=== PATIENT | female | born 1955 | race Caucasian/White ===

== ENCOUNTER 2018-07-03 07:06 | Inpatient (IN) | payer OTHER ==
[2018-07-03 07:56] LABS: Basophils % (A) 0 %; Eosinophils # (A) 0.3 k/uL (0-0.7); Eosinophils % (A) 5 %; HCT 41.3 % (34.0-46.0); HGB 13.7 gm/dL (11.4-16.0); Lymphocytes # (A) 2.5 k/uL (1.0-4.8); Lymphocytes % (A) 40 %; MCH 31.1 pg (25.0-35.0); MCHC 33.2 g/dL (31.0-37.0); MCV 93.5 fL (80.0-100.0); Mean Platelet Volume 7.2; Monocytes # (A) 0.4 k/uL (0-1.0); Monocytes % (A) 6 %; Neutrophils % (A) 47 %; Platelet Count 241 k/uL (150-450); RBC 4.42 m/uL (3.80-5.40); RDW 13.7 % (11.5-15.5); WBC 6.3 k/uL (3.8-10.6)
[2018-07-03 08:07] LABS: ALT 18 U/L (9-52); AST 17 U/L (14-36); Albumin 3.7 g/dL (3.5-5.0); Alkaline Phosphatase 47 U/L (38-126); Anion Gap 6 mmol/L; Blood Urea Nitrogen 16 mg/dL (7-17); Calcium 9.3 mg/dL (8.4-10.2); Carbon Dioxide 26 mmol/L (22-30); Chloride 108 mmol/L (98-107); Glucose 94 mg/dL (74-99); Potassium 4.1 mmol/L (3.5-5.1); Sodium 140 mmol/L (137-145); Total Bilirubin 0.7 mg/dL (0.2-1.3); Total Protein 6.3 g/dL (6.3-8.2)
[2018-07-03 08:08] LABS: Partial Thromboplastin Time 23.2 sec (22.0-30.0); Prothrombin Time 9.5 sec (9.0-12.0)
--- NOTE | 2018-07-03 08:08 | CT ---
EXAMINATION TYPE: CT brain wo con for TPA DATE OF EXAM: 07/03/2018 COMPARISON: None HISTORY: Pt presenting w/ neurological deficits. CT DLP: 1532.8 mGycm Automated exposure control for dose reduction was used. Helical imaging through the brain. FINDINGS: Deep white matter shows some vague areas of low-attenuation. No hemorrhage or hydrocephalus. 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 Cerebral vascular calc ifications are present. Minimal mucosal disease present in the maxillary sinus on the left. IMPRESSION: NONSPECIFIC WHITE MATTER DEMYELINATION MAY BE DUE TO CHRONIC SMALL VESSEL ISCHEMIA. NO ACUTE ABNORMAL ITY EVIDENT. MRI MAY BE OF BENEFIT.
--- NOTE | 2018-07-03 08:09 | ED ---
General Adult HPI - General Chief complaint: Neuro Symptoms/Deficit Stated complaint: Poss stroke Time Seen by Provider: 07/03/18 07:10 Source: patient, family, RN notes reviewed Mode of arrival: wheelchair Limitations: no limitations - History of Present Illness Initial comments: This is a 63-year-old female who presents emergency Department complaining of right hand weakness at this time. 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 It was at this time that she called her son and on the phone with him she noticed any difference in her voice and she thought she was having difficulty finding words. When the son arrived he had to assist her walking and she thought her right leg at that time was weak. Currently her only complaint is right hand weakness. Patient denies any chest pain difficulty breathing shortness of breath per patient denies any recent fever chills or cough per patient denies any headache. - Related Data Allergies Allergy/AdvReac Type Severity Reaction Status Date / Time No Known Allergies Allergy Verified 07/03/18 07:20 Review of Systems ROS Statement: Those systems with pertinent positive or pertinent negative responses have been documented in the HPI. ROS Other: All systems not noted in ROS Statement are negative. Past Medical History Past Medical History: No Reported History History of Any Multi-Drug Resistant Organisms: None Reported Past Surgical History: No Surgical Hx Reported Past Psychological History: No Psychological Hx Reported Smoking Status: Never smoker Past Alcohol Use History: None Reported Past Drug Use History: None Reported General Exam - General Exam Comments Initial Comments: GENERAL: Patient is well-developed and well-nourished. Patient is nontoxic and well- hydrated and is in mild distress. ENT: Neck is soft and supple. No significant lymphadenopathy is noted. Oropharynx is clear. Moist mucous membranes. Neck has full range of motion without eliciting any pain. EYES: The sclera were anicteric and conjunctiva were pink and moist. Extraocular movements were intact and pupils were equal round and reactive to light. Eyelids were unremarkable. PULMONARY: Unlabored respirations. Good breath sounds bilaterally. No audible rales rhonchi or wheezing was noted. CARDIOVASCULAR: There is a regular rate and rhythm without any murmurs gallops or rubs. Femoral pulses are equal bilaterally ABDOMEN: Soft and nontender with normal bowel sounds. No palpable organomegaly was noted. There is no palpable pulsatile mass. SKIN: Skin is clear with no lesions or rashes and otherwise unremarkable. NEUROLOGIC: Patient is alert and oriented x3. Cranial nerves II through XII are grossly intact. Patient has virtually no revenue cycle consultant in the right hand however by the time I was done interviewing her and doing my physical exam her revenue cycle consultant had come back to probably 45. MUSCULOSKELETAL: Normal extremities with adequate strength and full range of motion. No lower extremity swelling or edema. No calf tenderness. LYMPHATICS: No significant lymphadenopathy is noted PSYCHIATRIC: Normal psychiatric evaluation. Limitations: no limitations Course Vital Signs 07/03/18 07/03/18 07/03/18 07:12 07:25 07:40 Temperature 98.2 F Pulse Rate 85 86 84 Respiratory 20 19 19 Rate Blood Pressure 147/94 145/123 146/86 O2 Sat by Pulse 97 98 99 Oximetry Medical Decision Making - Medical Decision Making I spoke with the neuro interventional list and he did not believe TPA at this time was indicated EKG shows normal sinus rhythm at 74 bpm ID interval 184 QRS 94 Q-T intervals 408 QTC is 452. Patient's EKG shows no ST segment elevation or depression. CT of the brain and CT and U of the head and neck are normal per the neuro interventional states I started the patient on Plavix aspirin and Lipitor - Lab Data Result diagrams: 07/03/18 07:25 07/03/18 07:25 Lab Results 07/03/18 07/03/18 07/03/18 Range/Units 07:25 07:25 07:25 WBC 6.3 (3.8-10.6) k/uL RBC 4.42 (3.80-5.40) m/uL Hgb 13.7 (11.4-16.0) gm/dL Hct 41.3 (34.0-46.0) % MCV 93.5 (80.0-100.0) fL MCH 31.1 (25.0-35.0) pg MCHC 33.2 (31.0-37.0) g/dL RDW 13.7 (11.5-15.5) % Plt Count 241 (150-450) k/uL Neutrophils % 47 % Lymphocytes % 40 % Monocytes % 6 % Eosinophils % 5 % Basophils % 0 % Neutrophils # 3.0 (1.3-7.7) k/uL Lymphocytes # 2.5 (1.0-4.8) k/uL Monocytes # 0.4 (0-1.0) k/uL Eosinophils # 0.3 (0-0.7) k/uL Basophils # 0.0 (0-0.2) k/uL PT (9.0-12.0) sec INR (<1.2) APTT (22.0-30.0) sec Sodium 140 (137-145) mmol/L Potassium 4.1 (3.5-5.1) mmol/L Chloride 108 H (98-107) mmol/L Carbon Dioxide 26 (22-30) mmol/L Anion Gap 6 mmol/L BUN 16 (7-17) mg/dL Creatinine 0.58 (0.52-1.04) mg/dL Est GFR (CKD-EPI)AfAm >90 (>60 ml/min/1.73 sqM) Est GFR (CKD-EPI)NonAf >90 (>60 ml/min/1.73 sqM) Glucose 94 (74-99) mg/dL POC Glucose (mg/dL) (75-99) mg/dL POC Glu Records Tech ID Calcium 9.3 (8.4-10.2) mg/dL Total Bilirubin 0.7 (0.2-1.3) mg/dL AST 17 (14-36) U/L ALT 18 (9-52) U/L Alkaline Phosphatase 47 (38-126) U/L Total Creatine Kinase 82 (30-135) U/L CK-MB (CK-2) 1.1 (0.0-2.4) ng/mL CK-MB (CK-2) Rel Index 1.3 Troponin I <0.012 (0.000-0.034) ng/mL Total Protein 6.3 (6.3-8.2) g/dL Albumin 3.7 (3.5-5.0) g/dL 07/03/18 07/03/18 Range/Units 07:25 08:29 WBC (3.8-10.6) k/uL RBC (3.80-5.40) m/uL Hgb (11.4-16.0) gm/dL Hct (34.0-46.0) % MCV (80.0-100.0) fL MCH (25.0-35.0) pg MCHC (31.0-37.0) g/dL RDW (11.5-15.5) % Plt Count (150-450) k/uL Neutrophils % % Lymphocytes % % Monocytes % % Eosinophils % % Basophils % % Neutrophils # (1.3-7.7) k/uL Lymphocytes # (1.0-4.8) k/uL Monocytes # (0-1.0) k/uL Eosinophils # (0-0.7) k/uL Basophils # (0-0.2) k/uL PT 9.5 (9.0-12.0) sec INR 1.0 (<1.2) APTT 23.2 (22.0-30.0) sec Sodium (137-145) mmol/L Potassium (3.5-5.1) mmol/L Chloride (98-107) mmol/L Carbon Dioxide (22-30) mmol/L Anion Gap mmol/L BUN (7-17) mg/dL Creatinine (0.52-1.04) mg/dL Est GFR (CKD-EPI)AfAm (>60 ml/min/1.73 sqM) Est GFR (CKD-EPI)NonAf (>60 ml/min/1.73 sqM) Glucose (74-99) mg/dL POC Glucose (mg/dL) 90 (75-99) mg/dL POC Glu Records Tech Rolanda Villalta Calcium (8.4-10.2) mg/dL Total Bilirubin (0.2-1.3) mg/dL AST (14-36) U/L ALT (9-52) U/L Alkaline Phosphatase (38-126) U/L Total Creatine Kinase (30-135) U/L CK-MB (CK-2) (0.0-2.4) ng/mL CK-MB (CK-2) Rel Index Troponin I (0.000-0.034) ng/mL Total Protein (6.3-8.2) g/dL Albumin (3.5-5.0) g/dL Disposition Clinical Impression: CVA (cerebral vascular accident) Disposition: ADMITTED IP TO THIS [facility] Referrals: None,Stated [Primary Care Provider] - 1-2 days Time of Disposition: 08:43
[2018-07-03 08:10] LABS: Creatine Kinase 82 U/L (30-135)
[2018-07-03 08:22] LABS: Creatine Kinase MB 1.1 ng/mL (0.0-2.4); Troponin I <0.012 ng/mL (0.000-0.034)
[2018-07-03] MEDS ORDERED: CLOPIDOGREL 75 MG TAB PO STA (08:27)
[2018-07-03] MEDS ORDERED: ASPIRIN 325 MG TAB PO STA (08:27)
--- NOTE | 2018-07-03 08:35 | XR ---
EXAMINATION TYPE: XR chest 2V DATE OF EXAM: 07/03/2018 COMPARISON: NONE HISTORY: Altered mental status TECHNIQUE: Frontal and lateral views of the chest are obtained. FINDINGS: Technique is somewhat apical lordotic. There is no focal air space opacity, pleural effusio n, or pneumothorax seen. The cardiac silhouette size is at upper normal limits. The osseous struct ures are intact. IMPRESSION: No acute cardiopulmonary process.
[2018-07-03 08:41] LABS: Glucose,Whole Blood 90 mg/dL (75-99)
[2018-07-03] MEDS: ATORVASTATIN 80 MG TAB PO STA ×2 (08:46)
--- NOTE | 2018-07-03 11:13 | CT ---
EXAMINATION TYPE: CT angio head neck DATE OF EXAM: 07/03/2018 HISTORY: PT neuro defectis COMPARISON: 07/03/[address] DLP: 4532.8 mGycm. Automated Exposure Control for Dose Reduction was Utilized. TECHNIQUE: CTA scan of the neck is performed with IV Contrast, patient injected with 65 mL of Isovue 370, axial images are obtained, coronal and sagittal reformatted images are reviewed. Three-D recons tructed images are created on an independent workstation and reviewed. Technically difficult exam to reconstructed. FINDINGS: Carotid/Vascular Structures: Carotid bifurcations appear normal. No significant stenosis is evident. There is some mild tortuosity of the right common carotid artery. [place]: Internal carotid arteries bifurcate normally into A1 and M1 segments. The anterior communicating artery is patent. A2 segments are normal. Middle cerebral artery branches appear unrema rkable. Vertebral basilar system appears normal. Posterior cerebral arteries appear normal. Posterior communicating arteries are not identified. Other: There is an enlarged thyroid. A large nodule may be inferior posterior right lobe thyroidr manisha suring 2.5 x 1.9 cm. Degenerative disc changes and mild spondylosis within the cervical spine. IMPRESSION: 1. No significant arterial stenosis carotid bifurcations or [place]. 2. Enlarged thyroid suspected mass posterior inferior right lobe thyroid. Additional evaluation with ultrasound is recommended.
[2018-07-03] MEDS: CLOPIDOGREL 75 MG TAB PO SCH (13:41)
[2018-07-03 13:53] VITALS: BMI 35.1
--- NOTE | 2018-07-03 20:20 | MR ---
EXAMINATION TYPE: MR brain wo con DATE OF EXAM: 07/03/2018 COMPARISON: None HISTORY: Neuro deficits, CVA Standard multiplanar, multisequence MRI departmental protocol Multiplanar, multisequence images of the brain were acquired. Diffusion weighted imaging was performe d. FINDINGS: There is cerebral cortical atrophy. There are scattered small areas of increased signal on the T2 and FLAIR images in subcortical white matter of both cerebral hemispheres. Total number is les s than 10. This is seen in the left posterior temporal lobe and measures 4 mm. There largest measures 6 mm in the right frontal lobe. There is no midline shift. There is no evidence of intracranial hemo rrhage. There is slight increased signal in the white matter of the central jennifer. There is mild mucos al thickening left frontal sinus. I do not see evidence of an acute cortical infarct. The corpus call osum shows mild thinning. Sella turcica appears normal. IMPRESSION: White matter foci are scattered and more likely related to chronic small vessel ischemia. No evidence of cortical infarct. Mild cerebral atrophy.
[2018-07-03] MEDS ORDERED: ATORVASTATIN 80 MG TAB PO SCH (21:00)
--- NOTE | 2018-07-03 23:25 | P.HPIM ---
History of Present Illness H&P Date: 07/03/18 Chief Complaint: Right arm weakness Patient is a 63-year-old female without significant past medical history came to ER with complaints of right hand weakness. Patient says that she woke up in the morning and felt like she slept on the right arm. She cannot from bed and made tea to drink. While she was trying to pour water she could not and her hand gave away and also could not snap her fingers. She called her son to let him know and while she was talking she felt her right side of the face is numb and also difficulty finding words. When the son arrived he had to assist her walking and she thought her right leg at that time was weak. Her symptoms completely resolved by the time she came to the hospital and lasted about less than hour as per patient. Patient denies any chest pain difficulty breathing shortness of breath per patient denies any recent fever chills or cough per patient denies any headache. Next line denied any recent illnesses or sick contacts. No recent travel. No cough or sputum production. CT angiogram of the neck no significant stenosis carotid bifurcation are [place] Enlarged thyroid. Suspected mass posterior inferior right lobe thyroid. Ultrasound recommended CT head showed white matter foci are scattered and more likely related to chronic small was ischemic disease. No evidence of cortical infarct. Mild cerebral atrophy. EKG was ordered. Patient says that her passed day one year back. For the last 2 months she's not able to take care of herself. She is trying to participate in the group therapy. She also gained about 40 pounds during Last 2-3 months. Patient also states that she believes in holistic medicine but would try taking aspirin. Review of Systems Constitutional: Patient denies any fever or chills . No generalized weakness or weight loss. Abdomen: Patient denied nausea vomiting and diarrhea and abdominal pain. Cardiovascular: Patient denies any chest pain or short of breath no palpitations. Respiratory: patient denied any cough is from production. No shortness of breath Neurologic: Patient denied any numbness or tingling headache. Musculoskeletal: Patient denies any complaints of joint swelling or deformity. Skin: Negative Psychiatric: Negative Endocrine: No heat or cold intolerance. No recent weight gain. Genitourinary: No dysuria or hematuria. All other 14 point ROS negative except the above ROS unobtainable: due to endotracheal tube Past Medical History Past Medical History: No Reported History History of Any Multi-Drug Resistant Organisms: None Reported Past Surgical History: No Surgical Hx Reported Past Psychological History: No Psychological Hx Reported Smoking Status: Never smoker Past Alcohol Use History: None Reported Past Drug Use History: None Reported - Past Family History Father Family Medical History: No Reported History Medications and Allergies Home Medications Medication Instructions Recorded Confirmed Type L.acidoph,Paracasei, B.lactis 1 cap PO DAILY 07/03/18 07/03/18 History [Probiotic] Turmeric Root Extract [Turmeric] 500 mg PO DAILY 07/03/18 07/03/18 History Zinc 50 mg PO DAILY 07/03/18 07/03/18 History Allergies Allergy/AdvReac Type Severity Reaction Status Date / Time adhesive Allergy SEE Verified 07/03/18 09:07 COMMENTS Physical Exam Vitals: Vital Signs Temp Pulse Pulse Resp BP BP Pulse Ox 07/03/18 13:49 78 17 134/79 95 07/03/18 13:25 98.5 F 76 18 141/87 97 07/03/18 11:30 77 14 131/86 97 07/03/18 10:30 76 16 128/90 98 07/03/18 10:00 75 16 128/90 99 07/03/18 09:45 74 143/85 98 07/03/18 09:30 78 14 137/91 96 07/03/18 09:15 65 139/93 100 07/03/18 09:00 74 140/96 96 07/03/18 08:45 73 15 143/95 98 07/03/18 08:30 72 151/97 99 07/03/18 08:15 83 18 137/89 99 07/03/18 08:00 146/86 07/03/18 07:45 146/86 07/03/18 07:40 84 19 146/86 99 07/03/18 07:30 147/94 07/03/18 07:25 86 19 145/123 98 07/03/18 07:15 98 07/03/18 07:12 98.2 F 85 20 147/94 97 Intake and Output 07/02/18 07/03/18 07/03/18 22:59 06:59 14:59 Other: Weight 101.8 kg PHYSICAL EXAMINATION: Patient is lying in the bed comfortably, no acute distress, awake alert and oriented.. HEENT: Normocephalic. Neck is supple. Pupils reactive. Nostrils clear. Oral cavity is moist. Ears reveal no drainage. Neck reveals no JVD, carotid bruits, or thyromegaly. CHEST EXAMINATION: Trachea is central. Symmetrical expansion. Lung churchill clear to auscultation and percussion. CARDIAC: Normal S1, S2 with no gallops. No murmurs ABDOMEN: Soft. Bowel sounds normal. No organomegaly. No abdominal bruits. Extremities: reveal no edema. No clubbing or cyanosis Neurologically awake, alert, oriented x3 with well-coordinated movements. Muscle strength 5 out of 5 in all extremities. No focal deficits noted Skin: No rash or skin lesions. Psychiatric: Coperative. Nonsuicidal Musculoskeletal: No joint swelling or deformity. Normal range of motion. Results CBC & Chem 7: 07/03/18 07:25 07/03/18 07:25 Labs: Abnormal Lab Results - Last 24 Hours (Table) 07/03/18 Range/Units 07:25 Chloride 108 H (98-107) mmol/L Thrombosis Risk Factor Assmnt - DVT/VTE Prophylaxis DVT/VTE Prophylaxis: Pharmacologic Prophylaxis ordered - Choose All That Apply Each Risk Factor Represents 2 Points: Age 61-74 years Thrombosis Risk Factor Assessment Total Risk Factor Score: 2 Thrombosis Risk Factor Assessment Level: Low Risk Assessment and Plan Assessment: Acute right hand weakness. Likely due to TIA. Resolving now Suspected mass posterior inferior right lobe thyroid. Ultrasound THYROID WAS ORDERED. MORBID OBESITY BMI 35.2 DVT PROPHYLAXIS Plan: Patient will be continued on telemetry monitoring. Patient was started on aspirin. Neurology was consulted. Patient had stroke workup done including CT head, CT angiogram of the neck. 2-D echocardiogram was ordered. MRI of the brain was ordered. Further recommendations based on the clinical course. Time with Patient: Greater than 30
[2018-07-03] MEDS: HEPARIN SODIUM,PORCINE 5,000 UNIT/ML 1 ML VIAL SQ SCH (23:34)
--- NOTE | 2018-07-04 01:30 | P.CNNES ---
History of Present Illness Consult date: 07/03/18 Reason for Consult: This patient being evaluated for TIA vs. stroke. History of Present Illness: This patient was examined on 07/03/2018 in room 368 at [facility] 11:20 PM. This patient is a 63-year-old right-handed white female who states she was in her usual state of health until early this morning. The patient woke this morning and noted that she was having numbness involving her right arm. She thought maybe she had slept on the arm and the hand had gone to sleep. 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 These symptoms seem to occur very close together within 15 minutes. She then apparently was concerned and decided to call her son on the phone when she was noticing she was having difficulty with speech pronunciation. Her son noted there was clearly something not right at home and he told her to stay there and she was going to be evaluated immediately. Due to the sudden onset of right-sided weakness she decided to come to the emergency room for further evaluation. She did not experience any other discomfort such as chest pain. There is no visual loss or slurring of her speech. She was noted yesterday is having very mild speech impairment. The patient states she has been under a great deal of stress since she lost her a year ago. 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 She also started into a group counseling and support group which meets once a week. She mentioned she has been having feelings of mild depression since last year at the passing of her . The patient was brought into the emergency room at [facility]. She was seen in the ER by Dr. Shultz. He was sent for a computed tomography scan of the brain which revealed nonspecific white matter changes due to chronic small vessel ischemic changes. Based on the CAT scan she was not considered a candidate for TPA use. She also underwent a CTA angiogram of the head and neck which revealed no significant arterial stenosis or carotid bifurcation lesions. The patient was recommended admission to hospital for a complete stroke evaluation. She was able to complete an MRI of the brain today the results of which were reviewed with her. MRI revealed white matter ischemic changes with no evidence of acute cortical infarct. There was mild cerebral atrophy noted. The patient states she has been feeling quite well since admission to the hospital. She does mention she is been under great deal of stress at home. She may benefit from a therapist or psychiatrist to help assess her conditions. The patient otherwise seems to be doing quite well. We will continue close neurological follow-up for the patient during this admission. Her overall prognosis at this time remains guarded. Review of Systems Constitutional: Denies chills, Denies fever Eyes: denies blurred vision, denies pain Ears, nose, mouth and throat: Denies headache, Denies sore throat Cardiovascular: Denies chest pain, Denies shortness of breath Gastrointestinal: Denies abdominal pain, Denies diarrhea, Denies nausea, Denies vomiting Genitourinary: Denies dysuria, Denies hematuria Musculoskeletal: Denies myalgias Integumentary: Denies pruritus, Denies rash Neurological: Reports change in mentation, Reports paresthesias, Reports sensory deficit, Denies numbness, Denies weakness Psychiatric: Denies anxiety, Denies depression Endocrine: Denies fatigue, Denies weight change Past Medical History Past Medical History: No Reported History History of Any Multi-Drug Resistant Organisms: None Reported Past Surgical History: No Surgical Hx Reported Past Psychological History: No Psychological Hx Reported Smoking Status: Never smoker Past Alcohol Use History: None Reported Past Drug Use History: None Reported - Past Family History Father Family Medical History: No Reported History Medications and Allergies Home Medications Medication Instructions Recorded Confirmed Type L.acidoph,Paracasei, B.lactis 1 cap PO DAILY 07/03/18 07/03/18 History [Probiotic] Turmeric Root Extract [Turmeric] 500 mg PO DAILY 07/03/18 07/03/18 History Zinc 50 mg PO DAILY 07/03/18 07/03/18 History Allergies Allergy/AdvReac Type Severity Reaction Status Date / Time adhesive Allergy SEE Verified 07/03/18 09:07 COMMENTS Physical Examination - Vital Signs Vital Signs: Vital Signs Temp Pulse Pulse Resp BP BP Pulse Ox 07/04/18 00:00 97.8 F 89 16 151/82 98 07/03/18 20:46 98 07/03/18 20:00 97.7 F 80 16 172/81 99 07/03/18 18:04 72 18 07/03/18 15:57 98.3 F 72 18 150/98 99 07/03/18 15:27 78 17 07/03/18 13:49 78 17 134/79 95 07/03/18 13:25 98.5 F 76 18 141/87 97 07/03/18 11:30 77 14 131/86 97 07/03/18 10:30 76 16 128/90 98 07/03/18 10:00 75 16 128/90 99 07/03/18 09:45 74 143/85 98 07/03/18 09:30 78 14 137/91 96 07/03/18 09:15 65 139/93 100 07/03/18 09:00 74 140/96 96 07/03/18 08:45 73 15 143/95 98 07/03/18 08:30 72 151/97 99 07/03/18 08:15 83 18 137/89 99 07/03/18 08:00 146/86 07/03/18 07:45 146/86 07/03/18 07:40 84 19 146/86 99 07/03/18 07:30 147/94 07/03/18 07:25 86 19 145/123 98 07/03/18 07:15 98 07/03/18 07:12 98.2 F 85 20 147/94 97 Intake and Output 07/03/18 07/03/18 07/04/18 14:59 22:59 06:59 Other: # Voids 1 1 Weight 101.8 kg - Constitutional General appearance: average body habitus, cooperative - EENT EENT: PERRL, mucous membranes moist - Respiratory Respiratory: lungs clear, normal breath sounds - Cardiovascular Cardiovascular: regular rate, normal S1, normal S2 Extremities: no peripheral edema bilaterally - Gastrointestinal Gastrointestinal: normoactive bowel sounds - Integumentary Integumentary: normal - Neurologic Cranial nerve examination: PERRL, EOMI, VFF, V1/V2/V3 grossly intact, face symmetric, tongue midline, intact gag reflex, intact corneal reflex Speech examination: intact Sensorimotor examination: intact Motor examination - right side: 4/5: biceps, triceps, wrist flexion, wrist extension, 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, hip flexors, knee extensors, dorsiflexion, toe extension (EHL) , plantarflexion Motor examination - left side: 4/5: biceps, triceps, wrist flexion, wrist extension, 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, hip flexors, knee extensors, dorsiflexion, toe extension (EHL) , plantarflexion Detailed sensory examination: intact Reflex and gait examination: intact Reflexes: 1+: ankle, bicep, knee, tricep - Musculoskeletal Musculoskeletal: no pain - Psychiatric Psychiatric: mood/affect appropriate, cooperative Results - Laboratory Findings CBC and BMP: 07/03/18 07:25 07/03/18 07:25 Abnormal Lab Findings: Abnormal Labs 07/03/18 07:25 Chloride 108 H Assessment and Plan (1) TIA (transient ischemic attack) Current Visit: Yes Status: Acute Code(s): G45.9 - TRANSIENT CEREBRAL ISCHEMIC ATTACK, UNSPECIFIED SNOMED Code(s): 104526279 (2) Mild depression Current Visit: Yes Status: Acute Code(s): F32.0 - MAJOR DEPRESSIVE DISORDER , SINGLE EPISODE, MILD SNOMED Code(s): 645149979 (3) CVA (cerebral vascular accident) Current Visit: Yes Status: Acute Code(s): I63.9 - CEREBRAL INFARCTION, UNSPECIFIED SNOMED Code(s): 671611000 Plan: This patient is a 63-year-old female who was in her usual state of health on the day of admission. Patient apparently noticed sudden onset of right hand weakness and numbness. She was brought into the emergency room where she was further evaluated in the ER by Dr. Shultz. She was not felt to be a candidate for TPA and she was admitted to hospital for a complete stroke evaluation. This was discussed with the neuro interventionalist at [facility]. They were in full agreement. Patient states she has no previous history of TIA or stroke. She does follow with her primary care physician up until recently and she has not rescheduled. She will be looking for a new physician closer to home. Patient otherwise seems to be doing quite well. She has had no further recurrence of right arm weakness or discoordination with the use of her right hand We will continue close neurological follow-up for the patient during this admission. We have encouraged patient to remain active in her support group. She does have mild depression due to the loss of her last year. She may seek out other forms of treatment for her mild depression. We reviewed the results of the MRI of the brain that was completed today. Patient was very happy that the MRI failed to reveal any evidence of acute stroke. We will continue to monitor this patient's neurological status closely during this admission. Case was discussed at length today with the patient. She fully understands our findings and our recommendations. Time with Patient: Greater than 30
[2018-07-04] MEDS: HEPARIN SODIUM,PORCINE 5,000 UNIT/ML 1 ML VIAL SQ SCH (08:07)
[2018-07-04 08:13] VITALS: TEMP 98
[2018-07-04] MEDS: ASPIRIN 325 MG TAB PO SCH ×2 (08:14→08:17)
[2018-07-04] MEDS: CLOPIDOGREL 75 MG TAB PO SCH (08:14)
--- NOTE | 2018-07-04 10:34 | ECHOF ---
Referral Reason:TIA MEASUREMENTS -------- HEIGHT: 170.2 cm WEIGHT: 101.6 kg BP: IVSd: 1.1 cm (0.6 - 1.1) LVIDd: 4.2 cm (3.9 - 5.3) LVPWd: 1.3 cm (0.6 - 1.1) IVSs: 2.0 cm LVIDs: 2.2 cm LVPWs: 2.1 cm Ao Diam: 3.2 cm (2.0 - 3.7) AV Cusp: 1.9 cm (1.5 - 2.6) LA Diam: 3.4 cm (2.7 - 3.8) MV EXCURSION: 7.289 mm (> 18.000) MV EF SLOPE: 30 mm/s (70 - 150) EPSS: 0.7 cm MV E Shay: 0.51 m/s MV DecT: 201 ms MV A Shay: 0.83 m/s MV E/A Ratio: 0.62 RAP: 5.00 mmHg RVSP: 18.83 mmHg FINDINGS -------- Sinus rhythm. This was a technically good study. The left ventricular size is normal. There is borderline concentric left ventricular hypertrophy. Overall left ventricular systolic function is normal with, an EF between 55 - 60 %. The right ventricle is normal in size and function. The left atrium is normal in size. The right atrium is normal in size. The aortic valve is trileaflet, and appears structurally normal. No aortic stenosis or regurgitation. The mitral valve leaflets are mildly thickened. Mild mitral regurgitation is present. Trace tricuspid regurgitation present. The right ventricular systolic pressure, as measured by Dopp ler, is 18.83mmHg. Pulmonic valve appears structurally normal. CONCLUSIONS -------- 1. Sinus rhythm. 2. This was a technically good study. 3. The left ventricular size is normal. 4. There is borderline concentric left ventricular hypertrophy. 5. Overall left ventricular systolic function is normal with, an EF between 55 - 60 %. 6. The right ventricle is normal in size and function. 7. The left atrium is normal in size. 8. The right atrium is normal in size. 9. The aortic valve is trileaflet, and appears structurally normal. No aortic stenosis or regurgitati on. 10. The mitral valve leaflets are mildly thickened. 11. Mild mitral regurgitation is present. 12. Trace tricuspid regurgitation present. 13. The right ventricular systolic pressure, as measured by Doppler, is 18.83mmHg. 14. Pulmonic valve appears structurally normal. MIDDLE SCHOOL PRINCIPAL: Henrietta Robbins RDCS
[2018-07-04 11:29] VITALS: BP 133/85; PULSE 77; RESP 16
--- NOTE | 2018-07-04 11:33 | US ---
EXAMINATION TYPE: US thyroid st tissue head/neck DATE OF EXAM: 07/04/2018 COMPARISON: NONE CLINICAL HISTORY: Enlarged thyroid. GLAND SIZE: Right Lobe: 5.4 x 2.2 x 2.6 cm Overall Parenchyma: heterogenous Left Lobe: 5.7 x 1.8 x 2.5 cm Overall Parenchyma: heterogeneous Isthmus Thickness: 1.0 cm NODULES RIGHT: # of nodules measured on right: 1 1. 2.2 X 1.4 x 2.0 cm isoechoic mixed nodule at the lower pole with poorly defined margins. This nodule is taller than wide and shows no intranodular vascularity. LEFT: # of nodules measured on left: 1 1. 0.8 X 0.9 x 0.7 cm mixed, hyperechoic nodule at the upper pole with well-defined margins. This nodule is wider than tall and shows no intranodular vascularity. 1 ISTHMUS: # of nodules measured in the isthmus: 0 Bilateral neck scanned: no evidence of lymphadenopathy. IMPRESSION: 1. Right thyroid lobe nodules
--- NOTE | 2018-07-04 15:00 | P.DS ---
Providers Date of admission: 07/03/18 08:44 Expected date of discharge: 07/04/18 Attending physician: Jenn Martínez Consults: 07/03/18 08:47 Consult Physician Routine Consulting Provider: Darryl Borrero Consult Reason/Comments: CVA Do you want consulting provider notified?: Yes Primary care physician: Stated None Hospital Course: Ms. Salazar is a 63-year-old female without significant past medical history came to ER with complaints of right hand weakness. Patient says that she woke up in the morning and felt like she slept on the right arm. She cannot from bed and made tea to drink. While she was trying to pour water she could not and her hand gave away and also could not snap her fingers. She called her son to let him know and while she was talking she felt her right side of the face is numb and also difficulty finding words. When the son arrived he had to assist her walking and she thought her right leg at that time was weak. Her symptoms completely resolved by the time she came to the hospital and lasted about less than hour as per patient. Patient denies any chest pain difficulty breathing shortness of breath per patient denies any recent fever chills or cough per patient denies any headache. Next line denied any recent illnesses or sick contacts. No recent travel. No cough or sputum production. Patient says that her passed day one year back. For the last 2 months she's not able to take care of herself. She is trying to participate in the group therapy. She also gained about 40 pounds during Last 2-[address] angiogram of the neck no significant stenosis carotid bifurcation are [place] Enlarged thyroid. Suspected mass posterior inferior right lobe thyroid. Ultrasound recommended CT head showed white matter foci are scattered and more likely related to chronic small was ischemic disease. No evidence of cortical infarct. Mild cerebral atrophy. MRI revealed white matter ischemic changes with no evidence of acute cortical infarct. There was mild cerebral atrophy noted. Patient also had echocardiogram of the heart showing ejection fraction of 55-60% . Today the patient is lying in bed appears to be in acute distress. Patient states the symptoms of right-sided weakness have not been present since coming to the hospital. So most likely the patient had a TIA and stroke workup done with MRI, echocardiogram, CT NG of the brain have been within normal limits. She has been cleared by Dr. Borrero to be discharged home today. Physical examination Patient's vitals at the time of discharge Temperature 90.8, heart rate 76, respiratory rate 17, blood pressure 133-85, saturating at 97% on room air. Gen. 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 No focal neurological deficits. DISCHARGE DIAGNOSIS Acute right hand weakness. Likely due to TIA. Resolved. Right thyroid nodules MORBID OBESITY BMI 35. Plan-Patient states that she believes in holistic medications. She is okay with taking aspirin. She said she would try taking Plavix but mentions that she bruises easily and would stop taking it if she notices any. Patient is reluctant to be started on a statin. Patient has been provided with scripts of aspirin, Plavix, Lipitor in case she changes her mind. Patient had ultrasound of the neck showing right thyroid nodules. Clinically euthyroid. TSH within normal limits. Patient is advised to follow-up as outpatient for the thyroid nodules. Patient does not have a PCP. The list of PCPs on our list was provided to the patient. More than 35 minutes spent towards the discharge of the patient. Patient Condition at Discharge: Stable Plan - Discharge Summary New Discharge Prescriptions: New Aspirin 325 mg PO DAILY #30 tab Atorvastatin [Lipitor] 80 mg PO HS #30 tab Clopidogrel [Plavix] 75 mg PO DAILY #30 tab Continue Zinc 50 mg PO DAILY Turmeric Root Extract [Turmeric] 500 mg PO DAILY L.acidoph,Paracasei, B.lactis [Probiotic] 1 cap PO DAILY Discharge Medication List L.acidoph,Paracasei, B.lactis [Probiotic] 1 cap PO DAILY 07/03/18 [History] Turmeric Root Extract [Turmeric] 500 mg PO DAILY 07/03/18 [History] Zinc 50 mg PO DAILY 07/03/18 [History] Aspirin 325 mg PO DAILY #30 tab 07/04/18 [Rx] Atorvastatin [Lipitor] 80 mg PO HS #30 tab 07/04/18 [Rx] Clopidogrel [Plavix] 75 mg PO DAILY #30 tab 07/04/18 [Rx] Follow up Appointment(s)/Referral(s): None,Stated [Primary Care Provider] - 1-2 days Discharge Disposition: HOME SELF-CARE
== END 2018-07-04 15:35 | disposition home or self-care (01) | DRG 69 ==
LOC: EC 07:06 → 3SCARD 08:44
PROVIDERS: ADMIT Hospitalist; ATTEND Hospitalist
DX: G45.9 Transient cerebral ischemic attack, unspecified (principal); E66.01 Morbid (severe) obesity due to excess calories; E04.2 Nontoxic multinodular goiter; R29.702 NIHSS score 2; Z68.35 Body mass index [BMI] 35.0-35.9, adult; Z79.899 Other long term (current) drug therapy; Z88.8 Allergy status to other drugs, medicaments and biological substances
CPT/HCPCS: 36415; 70450; 70496; 70498; 70551; 71046; 76536; 80053; 80061; 82550; 82553; 84443; 84484; 85025; 85610; 85730; 93306; 94760; 99285

== ENCOUNTER 2021-09-06 21:42 | Emergency (ER) | payer MEDICARE ==
--- NOTE | 2021-09-07 01:16 | ED ---
General Adult HPI - General Chief complaint: Upper Respiratory Infection Stated complaint: COVID+, Wants BAM Time Seen by Provider: 09/07/21 00:03 Source: patient Mode of arrival: wheelchair Limitations: no limitations - History of Present Illness Initial comments: 's patient is a 66-year-old woman who presents to be evaluated for a constellation of symptoms she believes is all related to covert infection. Sates that it she began having symptoms approximately one week ago. On she developed fever and chills, body aches. She has also had a little bit of congestion and cough. There is been some nausea and diarrhea. The patient states she was feeling very rundown and weak today and family suggested she should be seen about having antibody therapy. Onset/Timin -: week(s) Location: back Quality: aching Consistency: constant Improves with: none Worsens with: none Associated Symptoms: cough, fever/chills, nausea/vomiting - Related Data Home Medications Medication Instructions Recorded Confirmed L.acidoph,Paracasei, B.lactis 1 cap PO DAILY 07/03/18 07/03/18 [Probiotic] Turmeric Root Extract [Turmeric] 500 mg PO DAILY 07/03/18 07/03/18 Zinc 50 mg PO DAILY 07/03/18 07/03/18 Previous Rx's Medication Instructions Recorded Aspirin 325 mg PO DAILY #30 tab 07/04/18 Atorvastatin [Lipitor] 80 mg PO HS #30 tab 07/04/18 Clopidogrel [Plavix] 75 mg PO DAILY #30 tab 07/04/18 Allergies Allergy/AdvReac Type Severity Reaction Status Date / Time adhesive Allergy SEE Verified 09/06/21 22:24 COMMENTS Review of Systems ROS Statement: Those systems with pertinent positive or pertinent negative responses have been documented in the HPI. ROS Other: All systems not noted in ROS Statement are negative. Constitutional: Reports: fever, chills ENT: Reports: congestion Respiratory: Reports: cough. Denies: dyspnea Cardiovascular: Denies: chest pain, palpitations, syncope Gastrointestinal: Reports: nausea, diarrhea. Denies: abdominal pain, vomiting, constipation Genitourinary: Denies: dysuria, hematuria Musculoskeletal: Reports: myalgia. Denies: back pain Skin: Denies: rash Neurological: Reports: headache. Denies: weakness, numbness Past Medical History Past Medical History: No Reported History History of Any Multi-Drug Resistant Organisms: None Reported Past Surgical History: No Surgical Hx Reported Past Psychological History: No Psychological Hx Reported Smoking Status: Never smoker Past Alcohol Use History: None Reported Past Drug Use History: None Reported - Past Family History Father Family Medical History: No Reported History General Exam Limitations: no limitations General appearance: alert Head exam: Present: atraumatic, normocephalic Eye exam: Present: normal appearance. Absent: scleral icterus, conjunctival injection ENT exam: Present: normal oropharynx Neck exam: Present: normal inspection Respiratory exam: Present: normal lung sounds bilaterally. Absent: respiratory distress, wheezes, rales, rhonchi, stridor Cardiovascular Exam: Present: regular rate, normal rhythm, normal heart sounds. Absent: systolic murmur, diastolic murmur, rubs, gallop GI/Abdominal exam: Present: soft. Absent: distended, tenderness, guarding, rebound, rigid, mass Extremities exam: Present: normal inspection, normal capillary refill. Absent: pedal edema, calf tenderness Back exam: Present: normal inspection. Absent: CVA tenderness (R), CVA tenderness (L) Neurological exam: Present: alert Skin exam: Present: warm, dry, intact, normal color. Absent: rash Course Vital Signs 09/06/21 09/07/21 22:25 00:23 Temperature 101.5 F H 98.6 F Pulse Rate 99 Respiratory 20 Rate Blood Pressure 111/73 O2 Sat by Pulse 94 L Oximetry Medical Decision Making - Lab Data Lab Results 09/06/21 Range/Units 22:30 Coronavirus (PCR) Detected A (Not Detectd) Disposition Clinical Impression: COVID-19 Disposition: HOME SELF-CARE Condition: Good Instructions (If sedation given, give patient instructions): Coronavirus Disease 2019 (COVID-19) Is patient prescribed a controlled substance at d/c from ED?: No Referrals: Humera Luis MD [Primary Care Provider] - 1-2 days
[2021-09-07] MEDS ORDERED: SODIUM CHLORIDE 0.9% 50 ML IVPB ONE (02:00)
[2021-09-07] MEDS ORDERED: CASIRIVIMAB (REGN10933) (EUA) 600 MG, IMDEVIMAB (REGN10987) (EUA) 600 MG in SODIUM CHLO... IVPB ONE (02:00)
[2021-09-07] MEDS ORDERED: ONDANSETRON ODT 4 MG TAB PO STA (02:14)
[2021-09-07 03:22] VITALS: BP 129/87; PULSE 84; RESP 18; TEMP 98.9
== END 2021-09-07 03:22 | disposition home or self-care (01) ==
LOC: EC 21:42
DX: U07.1 COVID-19 (principal); Z79.82 Long term (current) use of aspirin; Z79.02 Long term (current) use of antithrombotics/antiplatelets
CPT/HCPCS: 99284; 96360; 87635; Q0244

== ENCOUNTER 2024-04-06 01:05 | Emergency (ER) | payer MEDICARE ==
[2024-04-06 01:25] VITALS: TEMP 97.9
--- NOTE | 2024-04-06 02:29 | ED ---
Abdominal Pain HPI - General Source: patient, family, RN notes reviewed Mode of arrival: ambulatory Limitations: no limitations <Lorene Clayton - Last Filed: 04/06/24 03:57> <Crys Piper - Last Filed: 05/20/24 22:11> - General Chief Complaint: Abdominal Pain Stated Complaint: Abominal Pain, Nausea Time Seen by Provider: 04/06/24 02:27 - History of Present Illness Initial Comments: 69-year-old female presented to the ER with a chief complaint of generalized abdominal pain. Patient reports this has been ongoing for the past couple of months. She states for the past week pain has been increasing in intensity and intolerable today which brought her to the ER. She describes the pain as a persistent nausea achy pain. She denies any episodes of vomiting. She does report recent loose stools but denies any hematochezia or melena. Reports she has taken natural supplements and medications without relief. Patient denies any urinary complaints, fevers, chills, chest pain, shortness of breath or perip heral edema. (Lorene Clayton) - Related Data Home Medications Medication Instructions Recorded Confirmed L.acidoph,Paracasei, B.lactis 1 cap PO DAILY 07/03/18 07/03/18 [Probiotic] Turmeric Root Extract [Turmeric] 500 mg PO DAILY 07/03/18 07/03/18 Zinc 50 mg PO DAILY 07/03/18 07/03/18 Previous Rx's Medication Instructions Recorded Aspirin 325 mg PO DAILY #30 tab 07/04/18 Atorvastatin [Lipitor] 80 mg PO HS #30 tab 07/04/18 Clopidogrel [Plavix] 75 mg PO DAILY #30 tab 07/04/18 Ondansetron Odt [Zofran Odt] 4 mg PO Q8HR PRN #20 tab 04/06/24 Allergies Allergy/AdvReac Type Severity Reaction Status Date / Time adhesive Allergy SEE Verified 09/06/21 22:24 COMMENTS Review of Systems ROS Other: All systems not noted in ROS Statement are negative. <Lorene Clayton - Last Filed: 04/06/24 03:57> ROS Other: All systems not noted in ROS Statement are negative. <Crys Piper - Last Filed: 05/20/24 22:11> ROS Statement: Those systems with pertinent positive or pertinent negative responses have been documented in the HPI. Past Medical History Past Medical History: No Reported History History of Any Multi-Drug Resistant Organisms: None Reported Past Surgical History: No Surgical Hx Reported Past Psychological History: No Psychological Hx Reported Smoking Status: Never smoker Past Alcohol Use History: None Reported Past Drug Use History: None Reported - Past Family History Father Family Medical History: No Reported History <Lorene Clayton - Last Filed: 04/06/24 03:57> General Exam Limitations: no limitations General appearance: alert, in no apparent distress Respiratory exam: Present: normal lung sounds bilaterally. Absent: respiratory distress, wheezes, rales, rhonchi, stridor Cardiovascular Exam: Present: regular rate, normal rhythm, normal heart sounds. Absent: systolic murmur, diastolic murmur, rubs, gallop, clicks GI/Abdominal exam: Present: soft, normal bowel sounds. Absent: distended, tenderness, guarding, rebound, rigid Extremities exam: Present: normal inspection, full ROM, normal capillary refill. Absent: tenderness, pedal edema, joint swelling, calf tenderness Neurological exam: Present: alert, oriented X3, CN II-XII intact Skin exam: Present: warm, dry, intact, normal color. Absent: rash <Lorene Clayton - Last Filed: 04/06/24 03:57> Course Vital Signs 04/06/24 04/06/24 04/06/24 01:18 03:37 05:31 Temperature 97.9 F Pulse Rate 77 79 73 Respiratory 18 16 18 Rate Blood Pressure 154/94 150/81 138/82 O2 Sat by Pulse 98 97 96 Oximetry Medical Decision Making - Lab Data Result diagrams: 04/06/24 02:40 04/06/24 02:40 <Lorene Clayton - Last Filed: 04/06/24 03:57> - Lab Data Result diagrams: 04/06/24 02:40 04/06/24 02:40 <Crys Piper - Last Filed: 05/20/24 22:11> - Medical Decision Making Was pt. sent in by a medical professional or institution (, PA, POWERTRAIN DESIGN ENGINEER, urgent care, hospital, or care home...) When possible be specific @ -No Did you speak to anyone other than the patient for history (EMS, parent, family, police, friend...)? What history was obtained from this source @ -No Did you review nursing and triage notes (agree or disagree)? Why? @ -I reviewed and agree with nursing and triage notes Were old charts reviewed (outside hosp., previous admission, EMS record, old EKG, old radiological studies, urgent care reports/EKG's, care home records)? Report findings @ -No old charts were reviewed Differential Diagnosis (chest pain, altered mental status, abdominal pain women, abdominal pain men, vaginal bleeding, weakness, fever, dyspnea, syncope, headache, dizziness, GI bleed, back pain, seizure, CVA, palpatations, mental health, musculoskeletal)? @ -Differential Abdominal Pain Women:Appendicitis, Cholecystitis, diverticulosis, ischemic bowel, pancreatitis, hepatitis, UTI, gastroenteritis, AAA, incarcerated hernia, bowel obstruction, constipation, inflammatory bowel, hepatitis, peptic ulcer disease, splenic infarction, perforated viscus, vulvitis, ovarian torsion, PID, kidney stone, placenta abruption, this is not meant to be an all-inclusive list EKG interpreted by me (3pts min.). @ -None X-rays interpreted by me (1pt min.). @ -None done CT interpreted by me (1pt min.). @ -None done U/S interpreted by me (1pt. min.). @ -None done What testing was considered but not performed or refused? (CT, X-rays, U/S, labs)? Why? @ -None What meds were considered but not given or refused? Why? @ -None Did you discuss the management of the patient with other professionals (professionals i.e. , PA, POWERTRAIN DESIGN ENGINEER, lab, RT, psych nurse, medical social worker, stranding machine operator helper, teacher, police officer booking, case packer)? Give summary @ -No Was smoking cessation discussed for >3mins.? @ -No Was critical care preformed (if so, how long)? @ -No Were there social determinants of health that impacted care today? How? (Homelessness, low income, unemployed, alcoholism, drug addiction, trans portation, low edu. Level, literacy, decrease access to med. care, fdc, rehab)? @ -No Was there de-escalation of care discussed even if they declined (Discuss DNR or withdrawal of care, Hospice)? DNR status @ -No What co-morbidities impacted this encounter? (DM, HTN, Smoking, COPD, CAD, Cancer, CVA, ARF, Chemo, Hep., AIDS, mental health diagnosis, sleep apnea, morbid obesity)? @ -None Was patient admitted / discharged? Hospital course, mention meds given and route, prescriptions, significant lab abnormalities, going to OR and other pertinent info. @ -69-year-old female presented to the ER with a chief complaint of abdominal pain and nausea. History and physical exam completed. Vitals stable. Patient in no signs of acute distress. No focal abdominal tenderness on exam. Normal bowel sounds. No rebound or guarding. Laboratory studies obtained unremarkable. Urinalysis without evidence of infection. CT abdomen pelvis obtained and pending. Patient received IV fluids and Zofran for symptom control in the ER. Patient signed out to Dr. Piper pending CT results and disposition. (Lorene Clayton) Was patient admitted / discharged? Hospital course, mention meds given and route, prescriptions, significant lab abnormalities, going to OR and other pertinent info. @ -Discharged Undiagnosed new problem with uncertain prognosis? @ -Yes Drug Therapy requiring intensive monitoring for toxicity (Heparin, Nitro, Insulin, Cardizem)? @ -No Were any procedures done? @ -No Diagnosis/symptom? @ -Abdominal pain, left ovarian mass Acute, or Chronic, or Acute on Chronic? @ -Default Uncomplicated (without systemic symptoms) or Complicated (systemic symptoms)? @ -Default Side effects of treatment? @ -No Exacerbation, Progression, or Severe Exacerbation? @ -No Poses a threat to life or bodily function? How? (Chest pain, [place], [place], pneumonia, PE, COPD, DKA, ARF, appy, cholecystitis, CVA, Diverticulitis, Homicidal, Suicidal, threat to staff... and all critical care pts) @ -No (Crys Piper) - Lab Data Lab Results 04/06/24 04/06/24 04/06/24 Range/Units 02:40 02:40 02:40 WBC 5.6 (3.8-10.6) k/uL RBC 4.73 (3.80-5.40) m/uL Hgb 14.2 (11.4-16.0) gm/dL Hct 43.7 (34.0-46.0) % MCV 92.4 (80.0-100.0) fL MCH 29.9 (25.0-35.0) pg MCHC 32.4 (31.0-37.0) g/dL RDW 13.2 (11.5-15.5) % Plt Count 248 (150-450) k/uL MPV 7.3 Neutrophils % 62 % Lymphocytes % 26 % Monocytes % 6 % Eosinophils % 3 % Basophils % 1 % Neutrophils # 3.5 (1.3-7.7) k/uL Lymphocytes # 1.4 (1.0-4.8) k/uL Monocytes # 0.4 (0-1.0) k/uL Eosinophils # 0.2 (0-0.7) k/uL Basophils # 0.0 (0-0.2) k/uL Sodium 136 L (137-145) mmol/L Potassium 3.7 (3.5-5.1) mmol/L Chloride 106 (98-107) mmol/L Carbon Dioxide 24 (22-30) mmol/L Anion Gap 6 mmol/L BUN 12 (7-17) mg/dL Creatinine 0.56 (0.52-1.04) mg/dL Est GFR (CKD-EPI)AfAm >90 (>60 ml/min/1.73 sqM) Est GFR (CKD-EPI)NonAf >90 (>60 ml/min/1.73 sqM) Glucose 97 (74-99) mg/dL Plasma Lactic Acid Anuj 0.8 (0.7-2.0) mmol/L Calcium 9.7 (8.4-10.2) mg/dL Total Bilirubin 0.8 (0.2-1.3) mg/dL AST 25 (14-36) U/L ALT 20 (4-34) U/L Alkaline Phosphatase 63 (38-126) U/L Total Protein 6.5 (6.3-8.2) g/dL Albumin 4.3 (3.5-5.0) g/dL Amylase 43 (30-110) U/L Lipase 81 (23-300) U/L Urine Color Urine Appearance (Clear) Urine pH (5.0-8.0) Ur Specific [place] (1.001-1.035) Urine Protein (Negative) Urine Glucose (UA) (Negative) Urine Ketones (Negative) Urine Blood (Negative) Urine Nitrite (Negative) Urine Bilirubin (Negative) Urine Urobilinogen (<2.0) mg/dL Ur Leukocyte Esterase (Negative) 04/06/24 Range/Units 03:37 WBC (3.8-10.6) k/uL RBC (3.80-5.40) m/uL Hgb (11.4-16.0) gm/dL Hct (34.0-46.0) % MCV (80.0-100.0) fL MCH (25.0-35.0) pg MCHC (31.0-37.0) g/dL RDW (11.5-15.5) % Plt Count (150-450) k/uL MPV Neutrophils % % Lymphocytes % % Monocytes % % Eosinophils % % Basophils % % Neutrophils # (1.3-7.7) k/uL Lymphocytes # (1.0-4.8) k/uL Monocytes # (0-1.0) k/uL Eosinophils # (0-0.7) k/uL Basophils # (0-0.2) k/uL Sodium (137-145) mmol/L Potassium (3.5-5.1) mmol/L Chloride (98-107) mmol/L Carbon Dioxide (22-30) mmol/L Anion Gap mmol/L BUN (7-17) mg/dL Creatinine (0.52-1.04) mg/dL Est GFR (CKD-EPI)AfAm (>60 ml/min/1.73 sqM) Est GFR (CKD-EPI)NonAf (>60 ml/min/1.73 sqM) Glucose (74-99) mg/dL Plasma Lactic Acid Anuj (0.7-2.0) mmol/L Calcium (8.4-10.2) mg/dL Total Bilirubin (0.2-1.3) mg/dL AST (14-36) U/L ALT (4-34) U/L Alkaline Phosphatase (38-126) U/L Total Protein (6.3-8.2) g/dL Albumin (3.5-5.0) g/dL Amylase (30-110) U/L Lipase (23-300) U/L Urine Color Colorless Urine Appearance Clear (Clear) Urine pH 6.5 (5.0-8.0) Ur Specific [place] 1.007 (1.001-1.035) Urine Protein Negative (Negative) Urine Glucose (UA) Negative (Negative) Urine Ketones Negative (Negative) Urine Blood Negative (Negative) Urine Nitrite Negative (Negative) Urine Bilirubin Negative (Negative) Urine Urobilinogen <2.0 (<2.0) mg/dL Ur Leukocyte Esterase Negative (Negative) Disposition <Lorene Clayton - Last Filed: 04/06/24 03:57> Is patient prescribed a controlled substance at d/c from ED?: No <Crys Piper - Last Filed: 05/20/24 22:11> Clinical Impression: Ovarian mass, left, Abdominal pain Disposition: HOME SELF-CARE Condition: Stable Prescriptions: Ondansetron Odt [Zofran Odt] 4 mg PO Q8HR PRN #20 tab PRN Reason: Nausea Referrals: Humera Luis MD [Primary Care Provider] - 1-2 days
[2024-04-06] MEDS: SODIUM CHLORIDE 0.9% 1,000 ML IV STA (02:37)
[2024-04-06] MEDS: ONDANSETRON 4 MG/2 ML VIAL IVP STA (02:38)
[2024-04-06 03:01] LABS: Basophils % (A) 1 %; Eosinophils # (A) 0.2 k/uL (0-0.7); Eosinophils % (A) 3 %; HCT 43.7 % (34.0-46.0); HGB 14.2 gm/dL (11.4-16.0); Lymphocytes # (A) 1.4 k/uL (1.0-4.8); Lymphocytes % (A) 26 %; MCH 29.9 pg (25.0-35.0); MCHC 32.4 g/dL (31.0-37.0); MCV 92.4 fL (80.0-100.0); Mean Platelet Volume 7.3; Monocytes # (A) 0.4 k/uL (0-1.0); Monocytes % (A) 6 %; Neutrophils # (A) 3.5 k/uL (1.3-7.7); Neutrophils % (A) 62 %; Platelet Count 248 k/uL (150-450); RBC 4.73 m/uL (3.80-5.40); RDW 13.2 % (11.5-15.5); WBC 5.6 k/uL (3.8-10.6)
[2024-04-06 03:11] LABS: ALT 20 U/L (4-34); AST 25 U/L (14-36); African American GFR (CKD) >90 (>60 ml/min/1.73 sqM); Albumin 4.3 g/dL (3.5-5.0); Alkaline Phosphatase 63 U/L (38-126); Amylase 43 U/L (30-110); Anion Gap 6 mmol/L; Blood Urea Nitrogen 12 mg/dL (7-17); Calcium 9.7 mg/dL (8.4-10.2); Carbon Dioxide 24 mmol/L (22-30); Chloride 106 mmol/L (98-107); Glucose 97 mg/dL (74-99); Lipase 81 U/L (23-300); Non-African American GFR(CKD) >90 (>60 ml/min/1.73 sqM); Potassium 3.7 mmol/L (3.5-5.1); Sodium 136 mmol/L (137-145); Total Bilirubin 0.8 mg/dL (0.2-1.3); Total Protein 6.5 g/dL (6.3-8.2)
[2024-04-06 03:58] LABS: Appearance,Urine Clear (Clear); Bilirubin,Urine Negative (Negative); Blood,Urine Negative (Negative); Color,Urine Colorless; Glucose,Urine (UA) Negative (Negative); Ketones,Urine Negative (Negative); Leukocyte Esterase,Urine Negative (Negative); Nitrite,Urine Negative (Negative); PH, Urine 6.5 (5.0-8.0); Protein,Urine Negative (Negative); Specific Gravity,Urine 1.007 (1.001-1.035); Urobilinogen,Urine <2.0 mg/dL (<2.0)
--- NOTE | 2024-04-06 04:33 | CT ---
EXAM: CT Abdomen and Pelvis With Intravenous Contrast CLINICAL HISTORY: ITS.REASON CT Reason: abd pain. Intermittent nausea, diarrhea, and abdominal discomfort over the last 2 months. Pt. states the feeling has gotten significantly worse over the last week. TECHNIQUE: Axial computed tomography images of the abdomen and pelvis with intravenous contrast. CTDI is 20.3 mGy and DLP is 1421.4 mGy-cm. This CT exam was performed using one or more of the following dose reduction techniques: automated exposure control, adjustment of the mA and/or kV according to patient size, and/or use of iterative reconstruction technique. COMPARISON: None FINDINGS: Lung bases: Unremarkable. No mass. No consolidation. Mediastinum: Small hiatal hernia. ABDOMEN: Liver: Unremarkable. No mass. Gallbladder and bile ducts: Unremarkable. No calcified stones. No ductal dilation. Pancreas: Unremarkable. No mass. No ductal dilation. Spleen: Small splenule. Adrenals: Unremarkable. No mass. Kidneys and ureters: Unremarkable. No hydronephrosis or obstructing stone. Stomach and bowel: Evaluation of the stomach is limited by underdistention. No mucosal thickening. No bowel obstruction or inflammation. PELVIS: Appendix: Normal appendix. Bladder: Unremarkable. No mass. Reproductive: Probable left ovarian dermoid. ABDOMEN and PELVIS: Intraperitoneal space: Unremarkable. No free air. No significant fluid collection. Bones/joints: Degenerative changes of the spine. Curvature of the spine. No acute fracture. No dislocation. Soft tissues: Tiny fat-containing umbilical hernia. Vasculature: Phleboliths in the pelvis. Atherosclerotic changes of the vasculature. No abdominal aortic aneurysm or dissection. Lymph nodes: Unremarkable. No enlarged lymph nodes. IMPRESSION: Probable left ovarian dermoid. No acute abnormality in the abdomen or pelvis.
[2024-04-06 05:32] VITALS: BP 138/82; PULSE 73; RESP 18
== END 2024-04-06 06:04 | disposition home or self-care (01) ==
LOC: EC 01:05
CPT/HCPCS: 36415; 74177; 80053; 81003; 82150; 83605; 83690; 85025; 96374; 99284

== ENCOUNTER → 2024-04-07 | Outpatient (CLI) | payer MEDICARE | LOC: LABPRL 09:30 | PROVIDERS: ATTEND Family Medicine | CPT/HCPCS: 82306; 83036; 83735; 84443 ==